=== PATIENT | male | born 1935 | race Caucasian/White ===

== ENCOUNTER 2016-08-16 10:17 | Observation (INO) | payer OTHER, MEDICARE ==
[~2016-08-16] VITALS: Ht 185.4 cm; Wt 93.5 kg
[~2016-08-16 10:17] MED LIST: ALTACE10 MG PO; ASPIR 8181 M1 PO; ATIVAN0.5 MG PO; CRESTOR10 MG PO; ELIQUIS5 MG PO; HYDROCODON-ACE1 EAC7 PO; METOPROLOL SUCC25 MG PO; MICROZIDE12.5 M1 PO; NORVASC10 MG PO; PLAVIX75 MG PO; TOPROL XL50 MG PO; ULTRAM50 MG PO; VYTORIN 10/81 TABLET PO
[2016-08-16 10:58] LABS: HEMATOCRIT 44.6 % (38.0-50.0); MCV 103.2 FL (86-99); MEAN PLAT.VOLUME 9.1 uM^3 (9.0-12.4); PLATELET COUNT 174 K/uL (156-360); RBC DIS.WIDTH-CV 12.5 % (11.8-14.6); RBC DIS.WIDTH-SD 47.6 % (39-53); RED BLOOD COUNT 4.32 M/uL (4.00-5.50); WHITE BLOOD COUNT 5.2 K/uL (4.1-10.2)
[2016-08-16 11:09] LABS: CHLORIDE 106 mEq/L (99-109); POTASSIUM 4.3 mEq/L (3.7-5.4); SODIUM 141 mEq/L (136-147)
[2016-08-16 11:11] LABS: GLUCOSE 103 mg/dL (70-99)
[2016-08-16 11:13] LABS: ANION GAP 6 MEQ/L (2-14)
[2016-08-16 11:15] LABS: GFR ESTIMATE (CALCULATED) > 59 mL/min/
[2016-08-16 11:16] LABS: UREA NITROGEN (BUN) 18 mg/dL (9-23)
[2016-08-16 11:18] LABS: TROP-I INTERPRETATION NEGATIVE; TROPONIN-I 0.02 ng/mL (0.0-0.30)
[2016-08-16] MEDS ORDERED: PLAVIX75 MG PO (11:57)
[2016-08-16] MEDS ORDERED: NITROSTAT0.4 MG SL (11:57)
[2016-08-16 15:27] VITALS: BP 122/60
[2016-08-16 17:36] LABS: TROP-I INTERPRETATION NEGATIVE; TROPONIN-I 0.03 ng/mL (0.0-0.30)
[2016-08-16 19:00] VITALS: BP 102/51
[2016-08-17 00:04] LABS: TROP-I INTERPRETATION NEGATIVE; TROPONIN-I 0.02 ng/mL (0.0-0.30)
[2016-08-17 00:15] VITALS: BP 106/51
[2016-08-17 04:30] VITALS: BP 98/47
[2016-08-17 07:01] VITALS: BP 113/51
[2016-08-17] MEDS ORDERED: NORVASC5 MG PO (07:50)
== END 2016-08-17 09:04 | disposition home or self-care (01) ==
LOC: EME 10:17 → EDOF 11:58 → 5WEST 15:21
PROVIDERS: Internal Medicine
DX: I48.2 Chronic atrial fibrillation (principal); R07.89 Other chest pain; I10 Essential (primary) hypertension; I25.10 Atherosclerotic heart disease of native coronary artery without angina pectoris; Z85.46 Personal history of malignant neoplasm of prostate; I25.2 Old myocardial infarction; Z95.5 Presence of coronary angioplasty implant and graft; Z79.01 Long term (current) use of anticoagulants; E78.5 Hyperlipidemia, unspecified; K21.9 Gastro-esophageal reflux disease without esophagitis; Z88.8 Allergy status to other drugs, medicaments and biological substances
CPT/HCPCS: 71020; 80048; 84439; 84443; 84484; 85027; 93005; 99281; 99284; G0378; J7030